=== PATIENT | female | born 1995 | race Caucasian/White ===

== ENCOUNTER 2017-11-18 12:15 | Emergency (ER) | payer SELFPAY ==
[2017-11-18 14:06] VITALS: BMI 25.0
--- NOTE | 2017-11-18 16:09 | US ---
Indication: P0, No care. Approx 17 weeks. Comparison: None available. Technique: Transabdominal pelvic ultrasound. The patient declined transvaginal pelvic examination. Findings: Uterus measures approximately 7.6 x 3.8 x 3.9 cm. The endometrial approximately 0.4 cm. No evidence of intrauterine gestational sac. The right ovary measures 2.3 x 1.9 x 2.2 cm. The left ovary is not visualized. Blood flow is demonstrated to the right ovary. Impression: Limited transabdominal pelvic ultrasound. No evidence of intrauterine gestational sac. If indeed the patient is based on serum beta HCG values, the sonographic findings represent either: Very early IUP; embryonic demise; ectopic gestation. Follow-up with serial quantitative serum beta HCG measurements and post OBGYN follow-up as clinically indicated, since ectopic gestation cannot be excluded based only on sonographic findings. The left ovary is not visualized.
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
--- NOTE | 2017-11-18 19:54 | OBDCSUM ---
Datetime: 11/18/2017 16:02 Discharged to, Provider: Home Follow up at, Provider: wrestling coach Disch Instr Activity: Normal activity Disch Instr Diet: Regular Discharge Instructions, Provider: Routine instructions given Discharge Time: 11/18/2017 16:03 Follow up in weeks, Provider: LISETH Potts Referrals: None Contraception discussed, Prov: No Discharge Diagnosis Prov Other: Abnormal uterine bleeding
[2017-11-18 20:24] VITALS: BP 112/72; PULSE 74; RESP 20; TEMP 98.5; O2SAT 99
== END 2017-11-18 16:10 | disposition home or self-care (01) ==
LOC: C.EROB 12:15
DX: O46.92 Antepartum hemorrhage, unspecified, second trimester (principal); Z3A.17 17 weeks gestation of pregnancy